=== PATIENT | female | born 2000 | race Hispanic/Latino ===

== ENCOUNTER 2020-09-24 20:28 | Observation (INO) | payer OTHER ==
[~2020-09-24] VITALS: Ht 165.1 cm; Wt 84.8 kg
[2020-09-24] MEDS ORDERED: LACTATED RINGERS 1000ML 1,000 ML IV SCH ×2 (20:45→22:30)
[2020-09-24] MEDS ORDERED: PREN-196 PO (20:52)
[2020-09-24 21:19] LABS: APPEARANCE,URINE SL CLOUDY (CLEAR); BILIRUBIN,URINE NEGATIVE (NEGATIVE); COLOR,URINE YELLOW (YELLOW); GLUCOSE, URINE (UA) NEGATIVE (NEGATIVE); KETONES,URINE NEGATIVE (NEGATIVE); LEUKOCYTE ESTERASE ,URINE MODERATE (NEGATIVE); NITRATE,URINE NEGATIVE (NEGATIVE); OCCULT BLOOD,URINE SMALL (NEGATIVE); PROTEIN,URINE 30 mg/dL (NEGATIVE); UROBILINOGEN,URINE 0.2 mg/dL (0.2-1.0)
[2020-09-24 21:27] LABS: AMPHET/METH SCREEN,URINE NEGATIVE (NEGATIVE); BARBITURATE SCREEN, URINE NEGATIVE (NEGATIVE); BENZODIAZEPINES SCREEN,URINE NEGATIVE (NEGATIVE); CANNABINOID SCREEN,URINE NEGATIVE (NEGATIVE); COCAINE SCREEN,URINE NEGATIVE (NEGATIVE); OPIATE SCREEN,URINE NEGATIVE (NEGATIVE); PHENCYCLIDINE SCREEN,URINE NEGATIVE (NEGATIVE)
[2020-09-24 21:31] LABS: BACTERIA,URINE Moderate /HPF (None Seen); MUCUS,URINE Moderate LPF (None Seen); SQUAMOUS EPITHELIAL CELL,UR Many /HPF (0-2)
[2020-09-24] MEDS ORDERED: CEFTRIAXONE SODIUM 1 GM IVP SCH (22:30)
[2020-09-24] MEDS ORDERED: CEFTRIAXONE SODIUM 1 GM ONE (23:10)
[2020-09-24 23:12] LABS: BASOPHILS % (AUTO) 0.5 % (0.0-5.0); EOSINOPHILS % (AUTO) 0.7 % (0.0-8.0); HEMATOCRIT 33.7 % (36-48); LYMPHOCYTES % (AUTO) 12.6 % (21.0-51.0); MEAN CORPUSCULAR HEMOGLOBIN 28.5 pg (27.0-33.0); MEAN CORPUSCULAR HGB CONC 32.6 g/dL (32.0-36.0); MEAN CORPUSCULAR VOLUME 87.3 fL (79-99); MONOCYTES % (AUTO) 11.7 % (3.0-13.0); NEUTROPHILS % (AUTO) 72.8 % (40.0-77.0); PLATELET COUNT (AUTO) 187 K/uL (130-400); RED BLOOD CELL COUNT(AUTO) 3.86 MIL/uL (4.00-5.50); RED CELL DISTRIBUTION WIDTH 14.1 % (11.0-15.5); WHITE BLOOD COUNT (AUTO) 10.5 K/uL (4.8-10.8)
== END 2020-09-25 00:30 | disposition home or self-care (01) ==
LOC: EDH 20:28 → LDH 20:29
PROVIDERS: ADMIT Obstetrics & Gynecology; ATTEND Obstetrics & Gynecology
DX: O26.893 Other specified pregnancy related conditions, third trimester (principal); R50.9 Fever, unspecified; R10.2 Pelvic and perineal pain; R63.0 Anorexia; Z20.822 Contact with and (suspected) exposure to COVID-19; O99.891 Other specified diseases and conditions complicating pregnancy; M54.5 Low back pain; O98.313 Other infections with a predominantly sexual mode of transmission complicating pregnancy, third trimester; A63.0 Anogenital (venereal) warts; Z3A.36 36 weeks gestation of pregnancy
CPT/HCPCS: 36415; 59025; 80305; 81001; 85025; 87088; 87426; 87804 ×2; 96361 ×2; 96374; 99284; G0378 ×3; J0696; J7120; U0003; 96360

== ENCOUNTER 2024-07-07 13:42 | Emergency (ER) | payer BC, OTHER ==
[~2024-07-07 13:42] MED LIST: ACET-2079 PO; ASCO500W7 PO; DOCU-116 PO; IBUP-2077 PO; PREN-196 PO
--- NOTE | 2024-07-07 14:02 | ERN ---
ED Note History of Present Illness Stated Complaint: 13WKS WITH FLU SYMPTOMS Time Seen by MD: 13:58 Dictation: Patient is a 24-year-old female here with flu-like symptoms to include clear runny nose, mild sore throat with painful swallowing and dry cough. She has had no nausea vomiting no loss of taste or smell. She also states she is13 weeks , , primary care doctor is in [place]. She said she and her boyfriend who is here being seen for the same symptoms went to a green party last Saturday and people there were positive for influenza. She denies cramping or abdominal pain vaginal bleeding or back pain. Allergies: Coded Allergies: No Known Drug Allergies (Unverified Allergy, Unknown, 09/24/20) Home Meds Reported Medications Acetaminophen with Codeine (Acetaminophen-Cod #3 Tablet) 1 Each Tablet, 1 EACH PO Q4HPRN PRN for PAIN LEVEL 6 TO 10, TAB 10/27/20 Docusate Sodium (Colace) 100 Mg Capsule, 100 MG PO BID, CAP 10/27/20 Ibuprofen (Ibuprofen 800 mg Tab) 800 Mg Tab, 800 MG PO Q6H PRN for PAIN, TAB 10/27/20 Ascorbic Acid/Ascorbate Sodium (Vitamin C 500 mg Wafer) 500 Mg Wafer, 500 MG PO AM, WAFER 10/25/20 Vit No.124/Iron/FA ( Vitamin Tablet) 1 Each Tablet, 1 EACH PO DAILYDINNER, TAB 09/24/20 Past Medical History Past Medical History: No Pertinent History Surgical History: None : 1 RN Note Reviewed/Agreed w/PFSH: Yes Review of System Dictation CONSTITUTIONAL: Negative except for HPI fever chills HEAD/FACE: Negative except for HPI EENT: Negative except for HPI clear rhinitis with sore RESPIRATORY: Negative except for HPI throat dry cough GASTROINTESTINAL/ABDOMINAL: Negative except for HPI GENITOURINARY: Negative except for HPI MUSCULOSKELETAL: Negative except for HPI INTEGUMENTARY: Negative except for HPI NEUROLOGICAL/PSYCH: Negative except for HPI HEMATOLOGIC/LYMPHATIC: Negative except for HPI All Systems Negative, Except as noted above. 13 point review of systems assessed and all negative except for above. Initial Vital Sign VS Vital Signs Date Time Temp Pulse Resp B/P (MAP) Pulse Ox O2 Delivery O2 Flow Rate FiO2 07/07/24 14:06 100.6 113 20 152/89 98 Room Air 0 Physical Exam Dictation Vital Signs reviewed General Appearance: Alert, oriented x 3, mild acute distress, well developed, nourished. Head and Face: non-traumatic. Eyes: PERRL, pink conjunctivas, eyelid no trauma, anterior chamber with arcus senilis. Ears: Pinnas intact and no signs of trauma or erythema ear canals clear and no discharge TM no erythema Nose: No discharge, no bleeding. Oropharynx: Mouth normal, tongue pink, pharynx clear,no erythema, tonsils no exudates, no abscesses noted, mucous membrane moist Neck: Supple, non-tender, no thyromegaly, no masses, no JVD, no bruits Breast:Deferred Chest:No tenderness, no crepitus, no paradoxical movement, no retractions Lungs:Clear, well-ventilated, symmetric, no rales, no wheezing, no rhonchi, no stridor, good breath sounds bilaterally Heart: Regular rate, regular rhythm, no murmur, no gallops Vascular: no peripheral edema, Abdomen: Soft, positive bowel sounds, nondistended, no guarding, nontender, no rebound, no masses no hepatomegaly, no splenomegaly, no Ramirez's sign, no hernias. Rectal: Deferred Genital: Deferred Neurological: Normal speech, motor function intact, sensory function intact Musculoskeletal: Neck nontender, full range of motion, back nontender, full range of motion, Extremities: nontender, full range of motion Skin: Color pink, dry, no turgor, no rash, no lacerations, no abrasions, no contusions. Lymphatic: Deferred Results (Laboratory/Radiology) Laboratory/Radiology Laboratory Tests Test 07/07/24 14:00 07/07/24 14:06 Urine Color COLORLESS (YELLOW) Urine Appearance CLEAR (CLEAR) Urine pH 7.0 (5.0-8.0) Urine Specific [place] 1.005 (1.001-1.031) Urine Protein NEGATIVE mg/dL (NEGATIVE) Urine Glucose (UA) NEGATIVE mg/dL (NEGATIVE) Urine Ketones NEGATIVE mg/dL (NEGATIVE) Urine Occult Blood NEGATIVE (NEGATIVE) Urine Nitrate NEGATIVE (NEGATIVE) Urine Bilirubin NEGATIVE mg/dL (NEGATIVE) Urine Urobilinogen 0.2 mg/dL (0.2-1.0) Urine Leukocyte Esterase NEGATIVE Simone/uL Influenza Type A Antigen Negative For Type A Influenza Type B Antigen Negative For Type B SARS-CoV-2 Antigen (Rapid) PRESUMPTIVE NEGATIVE Group A Streptococcus Rapid negative (NEGATIVE) Labs Reviewed?: Yes ED Course ED Course Orders Procedure Category Date Status Time Rapid (Group A Strep) LAB 07/07/24 Complete 13:59 Covid19 (Sars Antigen LAB 07/07/24 Complete Rapid) 13:59 Influenza Type A & B, LAB 07/07/24 Complete Rapid 13:59 Acetaminophen 500mg PHA 07/07/24 Complete Tab (Tylenol 500mg T 14:00 *Nursing CPOE 07/07/24 Transmitted Communication: 13:59 Urinalysis Profile LAB 07/07/24 Complete 14:11 Current Medications Medications (Trade) Dose Ordered Sig/Bill Route PRN Reason Start Time Stop Time Status Last Admin Dose Admin Acetaminophen (TYLenol 500MG TAB) 1,000 mg ONCE ONCE PO 07/07/24 14:00 07/07/24 14:01 DC 07/07/24 15:07 Vital Signs Date Time Temp Pulse Resp B/P (MAP) Pulse Ox O2 Delivery O2 Flow Rate FiO2 07/07/24 15:07 100.6 07/07/24 14:06 100.6 113 20 152/89 98 Room Air 0 FIFTEEN 20 PATIENT WILL BE DISCHARGED HOME WITH NEGATIVE LABS, SHE WILL BE TREATED FOR ACUTE TONSILLITIS UNSPECIFIED WITH AUGMENTIN TOLD TO SEE HER DOCTOR IN [place] IN THE NEXT 1-2 DAYS AND TYLENOL ONLY FOR FEVER PAIN. Medical Decision Making MDM MEDICAL DISCHARGE MAKING BASED ON SWABS FOR FLU COVID AND STREP. ALL SWABS NEGATIVE PATIENT WILL BE TREATED FOR ACUTE TONSILLITIS UNSPECIFIED AND FEVER TOLD TO SEE HER ASIC ENGINEER DOCTOR IN [place] IN THE NEXT 1-2 DAYS FOR MANAGEMENT DX & DISP Disposition: Discharge Departure Impression: Primary Impression: Acute tonsillitis, unspecified Additional Impressions: Fever, Condition: Stable Scripts Amoxicillin/Potassium Clav (Amox Tr-K Clv 875-125 mg Tab) 875 Mg-125 Mg Tablet 1 EACH PO BID for 7 Days, #14 TAB 0 Refills Prov: HEIDI SANDOVAL WINEM[place]ER 07/07/24 Additional Instructions: FOLLOW-UP WITH PRIMARY CARE PROVIDER IN 1 TO 2 DAYS. TAKE MEDICATIONS DIRECTED HERE IN THE EMERGENCY ROOM. OKAY TO CONTINUE HOME MEDICATIONS UNLESS OTHERWISE DISCUSSED DURING YOUR VISIT IN THE EMERGENCY ROOM TODAY. RETURN TO YOUR NEAREST EMERGENCY ROOM IF SYMPTOMS WORSEN OR IF THERE IS NO IMPROVEMENT. CALL 911 IF YOU NEED IMMEDIATE ASSISTANCE. TAKE TYLENOL [id number] NEEDED AND IF NO CONTRAINDICATIONS ARE PRESENT. INCREASE ORAL HYDRATION. A WOUND CULTURE OR URINE CULTURE WAS ORDERED HERE IN THE EMERGENCY ROOM DEPARTMENT PLEASE FOLLOW-UP WITH PRIMARY CARE PROVIDER AND ADVISE THEM TO GET REPEAT PORTS FROM OUR FACILITY. IF YOU HAD ANY MICHAELLE WRAP/SPLINTS THAT WERE APPLIED HERE, PLEASE DO NOT REMOVE THEM UNTIL YOU SEE YOUR PRIMARY CARE OR SPECIALTY. TAKE ANTIBIOTICS DIRECTED UNTIL GONE. TAKE TYLENOL ONLY FOR FEVER PAIN. FOLLOW UP WITH YOUR ASIC ENGINEER DOCTOR IN [place] FOR MANAGEMENT IN THE NEXT 1-2 DAYS. Referrals: LAWANDA RUDD MD (PCP) Time of Disposition: 15:21 I have reviewed the case, and I agree with, Diagnosis and Plan HEIDI SANDOVAL NP Jul 07, 2024 14:02
[2024-07-07 14:52] LABS: RAPID GROUP A STREP negative (NEGATIVE)
[2024-07-07 14:53] LABS: APPEARANCE,URINE CLEAR (CLEAR); BILIRUBIN,URINE NEGATIVE (NEGATIVE); COLOR,URINE COLORLESS (YELLOW); GLUCOSE, URINE (UA) NEGATIVE (NEGATIVE); KETONES,URINE NEGATIVE (NEGATIVE); LEUKOCYTE ESTERASE ,URINE NEGATIVE Leu/uL (NEGATIVE); NITRATE,URINE NEGATIVE (NEGATIVE); OCCULT BLOOD,URINE NEGATIVE (NEGATIVE); PROTEIN,URINE NEGATIVE (NEGATIVE); UROBILINOGEN,URINE 0.2 mg/dL (0.2-1.0)
[2024-07-07 15:04] LABS: COVID19 (SARS ANTIGEN RAPID) PRESUMPTIVE NEGATIVE (NEGATIVE); INFLUENZA TYPE A Negative For Type A (NEGATIVE); INFLUENZA TYPE B Negative For Type B (NEGATIVE)
[2024-07-07 15:06] LABS: ADD UA MICROSCOPIC NO
[2024-07-07 15:07] VITALS: TEMP 100.6
[2024-07-07] MEDS: acetaMINOPHEN 500 MG TABLET PO ONE (15:07)
[2024-07-07] MEDS ORDERED: AMOX1TAB16 PO (15:22)
[2024-07-07 15:49] VITALS: BP 141/81; PULSE 100; RESP 20; TEMP 99; O2SAT 98
== END 2024-07-07 16:02 | disposition home or self-care (01) ==
LOC: EDH 13:42
DX: O99.511 Diseases of the respiratory system complicating pregnancy, first trimester (principal); J03.90 Acute tonsillitis, unspecified; O26.891 Other specified pregnancy related conditions, first trimester; R50.9 Fever, unspecified; Z3A.13 13 weeks gestation of pregnancy; Z20.822 Contact with and (suspected) exposure to COVID-19
CPT/HCPCS: 81003; 87426; 87804; 87880; 99283